=== PATIENT | male | born 1945 | race Caucasian/White ===

== ENCOUNTER 2024-08-30 12:21 | Emergency (ER) | payer OTHER, BC ==
[2024-08-30 12:35] VITALS: BP 147/59; PULSE 69; RESP 16; BMI 21.7
[2024-08-30 12:38] VITALS: TEMP 97.6
[2024-08-30] MEDS ORDERED: AMOX TR/POT CLAV 875MG/125MG TABLETS (FP) ONE (15:02)
[2024-08-30] MEDS: AMOX TR/POT CLAV 875MG/125MG TABLETS (FP) PO ONE (15:12)
[2024-08-30 15:21] LABS: BASO % 1.5 % (0-2.0); EOS % 6.8 % (0-4.5); HEMATOCRIT 32.9 % (35.4-49); HEMOGLOBIN 10.6 GM/dL (11.7-16.9); LYMPH % 16.1 % (8-40); MCH 29.2 pg (25.7-33.7); MCHC 32.1 g/dl (32.0-35.9); MEAN CELL VOLUME 91.2 fl (80-96); MEAN PLT VOLUME 7.4 fl (7.5-11.1); MONO % 9.9 % (3.8-10.2); NEUT % 65.7 % (42.8-82.8); PLATELET COUNT 283 10^3/uL (134-434); RBC 3.61 M/mm3 (4.00-5.60); RDW 15.7 % (11.9-15.9); WHITE BLOOD COUNT 8.5 K/mm3 (4.0-10.0)
[2024-08-30 15:22] LABS: PH,URINE 8.5 (5.0-8.0); URINE APPEARANCE CLEAR; URINE BILIRUBIN NEGATIVE (NEGATIVE); URINE COLOR YELLOW; URINE GLUCOSE (UA) 1+ (NEGATIVE); URINE KETONE NEGATIVE (NEGATIVE); URINE LEUK ESTERASE TRACE (NEGATIVE); URINE NITRITE NEGATIVE (NEGATIVE); URINE PROTEIN 2+ (NEGATIVE); URINE UROBILINOGEN 0.2 mg/dL (0.2-1.0)
[2024-08-30 15:25] LABS: EPI CELLS 4 /uL (0-25.1); HYALINE CASTS 0 /uL (0-3.1); URINE BACTERIA 14 /uL (0-1359); URINE RBC 26 /uL (0-23.9); URINE WBC 51 /uL (0-25.8)
[2024-08-30 15:38] LABS: POTASSIUM 3.8 mmol/L (3.5-5.1)
[2024-08-30 15:40] LABS: CALCIUM 9.7 mg/dL (8.5-10.1)
[2024-08-30 15:41] LABS: ALBUMIN 2.6 g/dl (3.4-5.0); BLOOD UREA NITROGEN 55.6 mg/dL (7-18)
[2024-08-30 15:44] LABS: CREATININE 4.3 mg/dL (0.55-1.3)
[2024-08-30 15:45] LABS: BILIRUBIN,TOTAL 0.3 mg/dL (0.2-1)
[2024-08-30 15:46] LABS: TOT PROT 6.9 g/dl (6.4-8.2)
== END 2024-08-30 21:35 | disposition home or self-care (01) ==
LOC: JER 12:21
DX: R33.9 Retention of urine, unspecified (principal); R10.30 Lower abdominal pain, unspecified
CPT/HCPCS: 36415; 80053; 81003; 85025; 87086; 93005; 93010; 99284-25